=== PATIENT | female | born 1960 | race Asian ===

== ENCOUNTER 2016-06-25 07:36 | Day surgery (SDC) | payer OTHER ==
[2016-06-25] VITALS (17 sets, daily range): BP systolic 111–175; BP diastolic 59–85; PULSE 50–88; RESP 16–25; Ht 147.3 cm; Wt 63.0 kg
[~2016-06-25] VITALS: Ht 147.3 cm; Wt 63.0 kg
[~2016-06-25 07:36] MED LIST: ATOR40TA68 PO; CYAN500T46 PO; INSU100C SC; LANT3I SC; LORA10TA3 PO; MTF1000T PO
[2016-06-25] MEDS ORDERED: MAXZ25 PO (09:13)
[2016-06-25] MEDS ORDERED: SOD CHLORIDE 0.9% 1,000 ML IV ONE (10:30)
[2016-06-25] MEDS ORDERED: INDOMETHACIN 50 MG SUPP PR ONE (10:56)
[2016-06-25] MEDS ORDERED: IOHEXOL 300MG/ML 30 ML BTL ONE (10:56)
[2016-06-25 11:23] LABS: POTASSIUM 4.6 mmol/L (3.5-5.1)
[2016-06-25] MEDS ORDERED: NEOSTIGMINE 3 MG/3 ML SYRINGE ONE (11:23)
[2016-06-25] MEDS ORDERED: SUCCINYLCHOLINE CHLORIDE 100 MG/5 ML SYG IV ONE (11:23)
[2016-06-25] MEDS ORDERED: LIDOCAINE 2% (SDV) 5 ML INJ ONE (11:23)
[2016-06-25] MEDS ORDERED: GLYCOPYRROLATE 0.4 MG INJ ONE (11:23)
[2016-06-25] MEDS ORDERED: PROPOFOL 20 ML ONE (11:23)
[2016-06-25] MEDS ORDERED: ROCURONIUM 50 MG INJ ONE (11:23)
[2016-06-25 11:24] LABS: CREATININE 0.77 mg/dl (0.44-1.00)
[2016-06-25 11:26] LABS: CALCIUM 9.8 mg/dl (8.4-10.2)
[2016-06-25] MEDS ORDERED: DIPHENHYDRAMINE 50 MG INJ ONE (11:27)
[2016-06-25] MEDS ORDERED: DEXAMETHASONE 4 MG/ML 1 ML INJ ONE (11:27)
[2016-06-25] MEDS ORDERED: HYDROmorphONE (0.2 MG/ML) 10ML SYG IV ONE (12:56)
[2016-06-25] MEDS ORDERED: METOCLOPRAMIDE 10 MG INJ IV PRN (13:00)
[2016-06-25] MEDS ORDERED: FENTAnyl 50 MCG/ML VIAL IV PRN ×2 (13:00)
[2016-06-25] MEDS ORDERED: HYDROmorphONE (0.2 MG/ML) 10ML SYG IV PRN ×3 (13:00)
[2016-06-25] MEDS ORDERED: DIPHENHYDRAMINE 50 MG INJ IV PRN (13:00)
[2016-06-25] MEDS ORDERED: MEPERIDINE 25 MG INJ IV PRN (13:00)
[2016-06-25] MEDS ORDERED: ONDANSETRON 4 MG INJ IV PRN (13:00)
--- NOTE | 2016-06-25 14:04 | RADRPT ---
PROCEDURE: Intraoperative imaging for ERCP with fluoroscopy. CLINICAL INDICATION: Right upper quadrant pain. Intraoperative. TECHNIQUE: 15 images of the right upper quadrant of the abdomen were obtained in the operating sajan m with an image intensifier. No radiologist was in attendance. 1.3 of fluoroscopy time was used. COMPARISON: No prior study is available for comparison. FINDINGS: Images demonstrate the endoscope in position. Contrast was initially injected into the pancreatic d uct followed by contrast injection into the common bile duct. The cystic duct is patent. Filling d efects are present in the common bile duct which may be gas bubbles or stones. A balloon sweep was made. The final image demonstrates a stent in satisfactory position within the common bile duct. IMPRESSION: 1. ERCP as described above. RPTAT: QQ .Dontae Rodriguez MD, Date Time Electronically viewed and signed by .Dontae Rodriguez MD, on 06/25/2016 14:04 .R/
--- NOTE | 2016-06-26 11:47 | GILP ---
DATE OF PROCEDURE: NAME OF PROCEDURE: Endoscopic retrograde cholangiopancreatography. PREOPERATIVE DIAGNOSIS: Patient presenting with history of abdominal pain that is suggestive of chr onic pancreatitis. ERCP at this time is performed to rule out chronic pancreatitis, ductal abnormal ities, sphincter of Oddi dysfunction, etc. POSTOPERATIVE DIAGNOSES: 1. The head of the pancreas duct in this area appears to be irregular and mildly dilated, could sug gest chronic pancreatitis. 2. Dilated common bile duct, could suggest some kind of a minimal distal biliary stricture or papil barb stenosis. Stent was placed after sphincterotomy. DESCRIPTION OF PROCEDURE: After informed written consent was obtained, the patient was intubated by anesthesiologist, Dr. Oconnor. While the patient was in prone position, Olympus video side-viewi ng duodenoscope was inserted into the oropharynx, then into the esophagus. Subsequently, the scope was advanced into the stomach and then into the duodenum. Ampulla appeared to be slightly nodular; however, at this time, by using the Dreamtome, cannulation was performed. Initially, pancreatic louise t was cannulated. The pancreatic duct in the head portion of the duct appeared to be irregular and d ilated. This could suggest chronic pancreatitis; however, no stones, no other significant strictures noted in the pancreatic duct. The rest of the pancreatic duct appeared normal. At this time, the cannula was repositioned into the common bile duct. The common bile duct showed dilatation and this could be suggestive of the distal bile duct stricture or papillary stenosis; however, there seems t o be a filling defect in the distal bile duct, and because of this, sphincterotomy was performed, ab out 5 mm cut of the sphincter was made and after the cut a 9 x 12 balloon was inserted into the comm on hepatic duct. Balloon sweeping was performed. Sludge was removed but no stones noted. At this t kellie, a 10 x 7 [place] type of endobiliary prosthesis was inserted into the bile duct across the am will into the duodenum and photographs were obtained and the procedure was terminated. PLAN: Recommend follow the patient in the office closely. Dictated By: DAVON ROLON/WILLIAM Conf#: [id number] DID#: [id number]
== END 2016-06-25 15:30 | disposition home or self-care (01) ==
LOC: GIL 07:36 → SDS 07:39 → GIL 15:30
PROVIDERS: ATTEND Internal Medicine Gastroenterology
DX: K80.50 Calculus of bile duct without cholangitis or cholecystitis without obstruction (principal); K86.1 Other chronic pancreatitis; K83.1 Obstruction of bile duct; E11.9 Type 2 diabetes mellitus without complications; I10 Essential (primary) hypertension; J45.909 Unspecified asthma, uncomplicated
CPT/HCPCS: 43277; 74330; 80048; 82962; 88305; C2617; J1100; J1170; J1200; J2710; J7999; Q9967; Z7512; Z7610